=== PATIENT | male | born 1980 | race Caucasian/White ===

== ENCOUNTER 2018-04-06 20:29 | Emergency (ER) | payer OTHER ==
--- NOTE | 2018-04-06 21:04 | ER ---
Nurse's Notes [facility] Name: Александр Reyes Age: 38 yrs Sex: Male : 1980 Arrival Date: 04/06/2018 Time: 20:36 Bed 18 Private MD: Diagnosis: Unspecified otitis externa, right ear Presentation: 04/06 21:00 Presenting complaint: Patient states: "I am having ear pain and bleeding in my right jd3 ear along with a fever.". Transition of care: patient was not received from another setting of care. Onset of symptoms was March 23, 2018. Risk Assessment: Do you want to hurt yourself or someone else? Patient reports no desire to harm self or others. Initial Sepsis Screen: Does the patient meet any 2 criteria? Temp <36.0*C (96.8*F)) or > 38.3*C (100.4*F). Yes Does the patient have a suspected source of infection? No. Patient's initial sepsis screen is negative. Care prior to arrival: None. 21:00 Method Of Arrival: Wheelchair jd3 21:00 Acuity: SERAFIN 4 jd3 Historical: - Allergies: 21:06 No Known Allergies; jd3 - Home Meds: 21:06 diphenhydramine HCl 25 mg Oral tab [Active]; Bactrim DS Oral 1 tab [Active]; jd3 carbamazepine 200 mg Oral tab 0.5 tab twice a day [Active]; Trintellix 10 mg oral tab 1 tab once daily [Active]; alprazolam 0.5 mg Oral tab 1 tab twice a day [Active]; - PSHx: 21:06 None; jd3 - Immunization history:: Adult Immunizations up to date. - Social history:: Smoking status: Patient uses tobacco products, chewing tobacco. - Family history:: not pertinent. - Ebola Screening: : Patient negative for fever greater than or equal to 101.5 degrees Fahrenheit, and additional compatible Ebola Virus Disease symptoms. - Hospitalizations: : No recent hospitalization is reported. Screenin:11 Abuse screen: Denies threats or abuse. Nutritional screening: No deficits noted. jd3 Tuberculosis screening: No symptoms or risk factors identified. Fall Risk No IV (0 pts). Ambulatory Aid- None/Bed Rest/Nurse Assist (0 pts). Gait- Normal/Bed Rest/Wheelchair (0 pts) Mental Status- Oriented to own ability (0 pts). Total Amaya Fall Scale indicates No Risk (0-24 pts). Assessment: 21:08 General: Appears uncomfortable, Behavior is cooperative, appropriate for age. Pain: jd3 Complains of pain in right ear Pain does not radiate. Pain currently is 10 out of 10 on a pain scale. Quality of pain is described as aching. 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 Cardiovascular: Capillary refill < 3 seconds Patient's skin is warm and dry. Respiratory: Airway is patent Respiratory effort is even, unlabored, Respiratory pattern is regular, symmetrical. GI: No signs and/or symptoms were reported involving the gastrointestinal system. : No signs and/or symptoms were reported regarding the genitourinary system. EENT: Ear canal redness and swelling noted. Derm: Skin is intact, Skin is dry, Skin is normal, Skin temperature is warm. Musculoskeletal: Circulation, motion, and sensation intact. Range of motion: intact in all extremities. 21:44 Reassessment: Patient appears in no apparent distress at this time. Patient and/or jd3 family updated on plan of care and expected duration. Pain level reassessed. Patient is alert, oriented x 3, equal unlabored respirations, skin warm/dry/pink. pt and family reported understanding of discharge instructions. Vital Signs: 21:07 BP 166 / 114; Pulse 100; Resp 18 S; Temp 100.7; Pulse Ox 98% on R/A; Weight 92.99 kg jd3 (R); Height 6 ft. 1 in. (185.42 cm) (R); Pain 10/10; 21:07 Body Mass Index 27.05 (92.99 kg, 185.42 cm) jd3 ED Course: 20:36 Patient arrived in ED. ds1 20:49 Samy Colmenares MD is Attending Physician. rn 20:49 Orlando Muhammad RN is Primary Nurse. jd3 21:03 Triage completed. jd3 21:03 Lisa Fay MD is Referral Physician. rn 21:08 Arm band placed on. jd3 21:12 Patient has correct armband on for positive identification. Bed in low position. Call jd3 light in reach. Side rails up X2. Adult w/ patient. 21:43 No provider procedures requiring assistance completed. Patient did not have IV access jd3 during this emergency room visit. Administered Medications: 21:23 Drug: Rocephin (cefTRIAXone) 1 grams Route: IM; Site: left gluteus; jd3 21:46 Follow up: Response: No adverse reaction jd3 21:23 Drug: [place] 10 mg-325 mg 1 tabs Route: PO; jd3 21:46 Follow up: Response: No adverse reaction jd3 Outcome: 21:03 Discharge ordered by . rn 21:44 Discharged to home via wheelchair. jd3 21:44 Condition: stable 21:44 Discharge instructions given to patient, family, Instructed on discharge instructions, follow up and referral plans. medication usage, Demonstrated understanding of instructions, follow-up care, medications, Prescriptions given X 2. 21:46 Patient left the ED. jd3 Signatures: Ermelinda Kim ds1 Samy Colmenares MD MD rn Davies, Jonathon, RN RN jvega
--- NOTE | 2018-04-06 21:04 | EDPHYS ---
Physician Documentation [facility] Name: Александр Reyes Age: 38 yrs Sex: Male : 1980 Arrival Date: 04/06/2018 Time: 20:36 Bed 18 Private MD: ED Physician Samy Colmenares HPI: 04/06 20:55 This 38 yrs old Male presents to ER via Unassigned with complaints of Ear rn Bleeding. 20:55 The patient presents with drainage, pain, tenderness. The complaints affect the right rn ear. Onset: The symptoms/episode began/occurred this morning. Modifying factors: The symptoms are alleviated by nothing, the symptoms are aggravated by nothing. Severity of symptoms: At their worst the symptoms were moderate in the emergency department the symptoms are unchanged. The patient has experienced a previous episode. Reports hx of ear infection with perforated TM, reports right ear pain that began today, no trauma, + drainage, + low grade fever, no pcp. . Historical: - Allergies: 21:06 No Known Allergies; jd3 - Home Meds: 21:06 diphenhydramine HCl 25 mg Oral tab [Active]; Bactrim DS Oral 1 tab [Active]; jd3 carbamazepine 200 mg Oral tab 0.5 tab twice a day [Active]; Trintellix 10 mg oral tab 1 tab once daily [Active]; alprazolam 0.5 mg Oral tab 1 tab twice a day [Active]; - PSHx: 21:06 None; jd3 - Immunization history:: Adult Immunizations up to date. - Social history:: Smoking status: Patient uses tobacco products, chewing tobacco. - Family history:: not pertinent. - Ebola Screening: : Patient negative for fever greater than or equal to 101.5 degrees Fahrenheit, and additional compatible Ebola Virus Disease symptoms. - Hospitalizations: : No recent hospitalization is reported. ROS: 20:55 Constitutional: Negative for fever, chills, and weight loss, Eyes: Negative for injury, rn pain, redness, and discharge, ENT: + right ear pain Neck: Negative for injury, pain, and swelling, Cardiovascular: Negative for chest pain, palpitations, and edema, Respiratory: Negative for shortness of breath, cough, wheezing, and pleuritic chest pain, Abdomen/GI: Negative for abdominal pain, nausea, vomiting, diarrhea, and constipation. Exam: 20:55 Constitutional: This is a well developed, well nourished patient who is awake, alert, rn and in no acute distress. Head/Face: Normocephalic, atraumatic. ENT: Right external canal with inflammatory debris and swelling, + serous drainage, inferior portion of TM visualized, no obvious perforation but unable to see superior pole. Vital Signs: 21:07 BP 166 / 114; Pulse 100; Resp 18 S; Temp 100.7; Pulse Ox 98% on R/A; Weight 92.99 kg jd3 (R); Height 6 ft. 1 in. (185.42 cm) (R); Pain 10/10; 21:07 Body Mass Index 27.05 (92.99 kg, 185.42 cm) jd3 MDM: 20:49 Patient medically screened. rn 20:55 Differential diagnosis: otitis externa, ruptured TM. Data reviewed: vital signs, nurses rn notes, and as a result, I will discharge patient. Counseling: I had a detailed discussion with the patient and/or guardian regarding: the historical points, exam findings, and any diagnostic results supporting the discharge/admit diagnosis, the need for outpatient follow up, to return to the emergency department if symptoms worsen or persist or if there are any questions or concerns that arise at home. Special discussion: I discussed with the patient/guardian in detail that at this point there is no indication for admission to the hospital. It is understood, however, that if the symptoms persist or worsen the patient needs to return immediately for re-evaluation. Based on the history and exam findings, there is no indication for further emergent testing or inpatient evaluation. I discussed with the patient/guardian the need to see the ENT specialist for further evaluation of the symptoms. Administered Medications: 21:23 Drug: Rocephin (cefTRIAXone) 1 grams Route: IM; Site: left gluteus; jd3 21:46 Follow up: Response: No adverse reaction jd3 21:23 Drug: [place] 10 mg-325 mg 1 tabs Route: PO; jd3 21:46 Follow up: Response: No adverse reaction jd3 Disposition: 04/06/18 21:03 Discharged to Home. Impression: Unspecified otitis externa, right ear. - Condition is Stable. - Discharge Instructions: Ear Drops, Adult, Otitis Externa. - Prescriptions for Augmentin 875- 125 mg Oral Tablet - take 1 tablet by ORAL route every 12 hours for 10 days; 20 tablet. Cortisporin- TC 3.3-3-10-0.5 mg/mL Otic Suspension - instill 4 drop by OTIC route every 6 hours; 1 bottle. - Medication Reconciliation Form, Thank You Letter, Antibiotic Education, Prescription Opioid Use form. - Follow up: Lisa Fay MD; When: 5 - 6 days; Reason: Recheck today's complaints, Re-evaluation by your physician. - Problem is new. - Symptoms have improved. Signatures: Samy Colmenares MD MD rn Orlando Muhammad RN RN jd3 Corrections: (The following items were deleted from the chart) 21:46 21:03 04/06/2018 21:03 Discharged to Home. Impression: Unspecified otitis externa, jd3 right ear. Condition is Stable. Forms are Medication Reconciliation Form, Thank You Letter, Antibiotic Education, Prescription Opioid Use. Follow up: Lisa Fay; When: 5 - 6 days; Reason: Recheck today's complaints, Re-evaluation by your physician. Problem is new. Symptoms have improved. rn
[2018-04-06] MEDS ORDERED: HYDROCODONE/APAP 10/325 TAB ONE (21:17)
[2018-04-06] MEDS ORDERED: CEFTRIAXONE 1000 MG/VIAL ONE (21:17)
== END 2018-04-06 21:46 | disposition home or self-care (01) ==
LOC: ER 20:29
DX: H60.91 Unspecified otitis externa, right ear (principal); F17.220 Nicotine dependence, chewing tobacco, uncomplicated
CPT/HCPCS: 96372; 99283